=== PATIENT | female | born 1985 | race Caucasian/White ===

== ENCOUNTER 2020-06-07 06:39 | Emergency (ER) | payer OTHER ==
[2020-06-07] MEDS ORDERED: Morphine 4 MG/ML VIAL ONE (07:13)
[2020-06-07] MEDS ORDERED: Ondansetron PF 4 MG/2 ML Vial ONE (07:13)
[2020-06-07] MEDS ORDERED: Pantoprazole 40 MG VIAL ONE (07:14)
[2020-06-07 07:20] LABS: #Basophils 0.1 thou/uL (0.0-0.2); #Eosinphils 0.3 thou/uL (0.0-0.7); #Lymphocytes 3.8 thou/uL (1.20-3.40); #Monocytes 0.7 thou/uL (0.11-0.59); %Basophils 0.6 % (0.0-1.0); %Eosinophils 1.9 % (0.0-10.0); %Lymphocytes 21.1 % (21.0-51.0); %Monocytes 3.6 % (0.0-10.0); %Neutrophils 72.8 % (42.0-75.0); Hemoglobin 13.2 g/dL (12.0-16.0); Mean Corpuscular HGB CONC 34.6 g/dL (32.0-36.0); Mean Corpuscular Hemoglobin 28.8 pg (27.0-31.0); Mean Corpuscular Volume 83.2 fL (78.0-98.0); Mean Platelet Volume 7.4 fL (7.4-10.4); Platelet Count 408 thou/uL (130-400); RBC Distribution Width 11.7 % (11.5-14.5); Red Blood Cell (RBC) Count 4.58 mill/uL (4.20-5.40); White Blood Cell (WBC) Count 17.9 thou/uL (4.8-10.8)
[2020-06-07 07:32] LABS: BHCG - Serum Negative (NEGATIVE); Pregs Control Background? CLEAR/WHITE (CLR/WHITE); Pregs Control Bar Appear? YES (CONTROL BAR)
[2020-06-07 07:44] LABS: ALT (SGPT) 13 U/L (8-55); AST (SGOT) 14 U/L (5-34); Albumin 3.9 g/dL (3.5-5.0); Alkaline Phosphatase 94 U/L (40-110); Anion Gap 15 mmol/L (10-20); BUN (Urea Nitrogen) 11 mg/dL (7.0-18.7); Bilirubin, Total 0.6 mg/dL (0.2-1.2); Calc. Creatinine Clearance 0 mL/min (70-130); Calcium 9.5 mg/dL (7.8-10.44); Carbon Dioxide 21 mmol/L (22-29); Chloride 105 mmol/L (98-107); Globulin 3.4 g/dL (2.4-3.5); Glucose 124 mg/dL (70-105); Lipase 14 U/L (8-78); Potassium 3.7 mmol/L (3.5-5.1); Protein, Total 7.3 g/dL (6.0-8.3); Sodium 137 mmol/L (136-145)
[2020-06-07 09:54] LABS: Bilirubin Negative (Negative); Blood, Urine Negative (Negative); Clarity Clear (Clear); Glucose, Urine (Dipstick) Normal (Negative); Ketone, Urine Negative (Negative); Leukocyte 75 Leu/uL (Negative); Nitrite Negative (Negative); Protein, Urine (Dipstick) Negative (Neg-Trace); RBC/HPF 0-3 HPF (0-3); Specific Gravity, Urine 1.028 (1.002-1.036); Squamous Epithelial 0-3 HPF (0-3); Urobilinogen Normal mg/dL (Less than 2); pH, Urine 5.5 (5.0-9.0)
[2020-06-07 10:11] LABS: Bacteria/HPF 1+ HPF (None Seen)
[2020-06-07] MEDS ORDERED: Iopamidol 370 76% 100 ML VIAL ONE (12:00)
== END 2020-06-07 11:05 | disposition home or self-care (01) ==
LOC: ERS 06:39
DX: N30.00 Acute cystitis without hematuria (principal); K58.0 Irritable bowel syndrome with diarrhea; A09 Infectious gastroenteritis and colitis, unspecified
CPT/HCPCS: 36415; 74177; 80053; 81003; 81015; 82274; 83690; 84703; 85025; 86850; 86900; 86901; 87086; 94760; 96372; 96374; 96375; C9113; J0500; J2270; J2405; Q9967